=== PATIENT | female | born 1960 | race Caucasian/White ===

== ENCOUNTER → 2016-10-24 | Outpatient (CLI) | payer OTHER ==
[~2016-10-24] MED LIST: FISH OIL1 IU PO; MVI PO; VITAMIN D PO; ZOLOFT50 MG PO
== END ==
LOC: MC.RAD 07:40
DX: Z12.31 Encounter for screening mammogram for malignant neoplasm of breast (principal)

== ENCOUNTER → 2017-10-27 | Outpatient (CLI) | payer BC | LOC: MC.RAD 09:52 | DX: Z12.31 Encounter for screening mammogram for malignant neoplasm of breast (principal) ==

== ENCOUNTER → 2018-10-29 | Outpatient (CLI) | payer BC | LOC: MC.RAD 14:11 | DX: Z12.31 Encounter for screening mammogram for malignant neoplasm of breast (principal) ==

== ENCOUNTER 2018-12-18 05:54 | Day surgery (SDC) | payer BC ==
[~2018-12-18] VITALS: Ht 157.5 cm; Wt 57.3 kg
[2018-12-18 06:33] VITALS: BP 108/69; PULSE 83; TEMP 97.9
[2018-12-18 07:25] VITALS: BP 105/74; PULSE 85; TEMP 97.6
--- NOTE | 2018-12-18 07:36 | NUR ---
Patient arrives from the OR to [place] [facility]. Vital signs started. Juice given. call light within reach, will continue to monitor.
[2018-12-18 07:40] VITALS: BP 106/65; PULSE 84
--- NOTE | 2018-12-18 07:54 | NUR ---
PATIENT EATING BLUEBERRY MUFFIN. VS STABLE. CALL LIGHT WITHIN REACH.
[2018-12-18 07:55] VITALS: BP 112/68; PULSE 74
[2018-12-18 08:10] VITALS: BP 108/69; PULSE 86
--- NOTE | 2018-12-18 08:15 | NUR ---
PATIENT tolerated muffin, VS STABLE, CALL LIGHT WITHIn reach.
--- NOTE | 2018-12-18 09:03 | NUR ---
PATIENT DISCHARGED TO HOME VIA WHEELCHAIR TO PERSONAL CAR. DISCHARGE INTRUCTIONS WERE GIVEN TO PATIENT AND FRIEND, VERBALIZED UNDERSTANDING.
== END 2018-12-18 08:50 | disposition home or self-care (01) ==
LOC: SDCO 05:54
DX: Z12.11 Encounter for screening for malignant neoplasm of colon (principal); D12.8 Benign neoplasm of rectum
CPT/HCPCS: J2250; J3010; J7030

== ENCOUNTER → 2019-11-05 | Outpatient (CLI) | payer BC | LOC: MC.RAD 07:08 | DX: Z12.31 Encounter for screening mammogram for malignant neoplasm of breast (principal) ==

== ENCOUNTER → 2020-11-13 | Outpatient (CLI) | payer BC | LOC: MC.RAD 08:00 | DX: Z12.31 Encounter for screening mammogram for malignant neoplasm of breast (principal) ==